=== PATIENT | male | born 1965 | race Caucasian/White ===

== ENCOUNTER 2022-07-11 14:13 | Outpatient (CLI) | payer OTHER, SELFPAY | END 2022-07-11 14:14 | disposition home or self-care (01) | LOC: ANHAUDIO 14:14 | PROVIDERS: PCP Family Medicine; Visit Provider Otolaryngology | DX: H90.42 Sensorineural hearing loss, unilateral, left ear, with unrestricted hearing on the contralateral side (principal); H90.71 Mixed conductive and sensorineural hearing loss, unilateral, right ear, with unrestricted hearing on the contralateral side | CPT/HCPCS: 92557; 92567 ==

== ENCOUNTER 2023-10-06 13:24 | Outpatient (CLI) | payer OTHER, SELFPAY ==
--- NOTE | ~2023-10-06 | CT_ITS ---
EXAMINATION: CT lung screening DATE: 10/06/2023 13:42 INDICATION: Personal history of nicotine dependence, current smoker with 80 pack year history TECHNIQUE: Computed tomography (CT) of the chest was performed without intravenous contrast. The dose -length product (DLP) was 254.03 mGy-cm. Automated exposure control and iterative reconstruction tech [employer] were employed. COMPARISON: None FINDINGS: There is mild emphysema. There are multiple small nodules scattered throughout the lungs wh ich measure up to 2 mm in the right upper lobe. Calcified pulmonary nodules and calcified bilateral h ilar lymph nodes are consistent with old granulomatous disease. The lungs are free of acute opacities . No pleural effusion or pneumothorax. No pathologically enlarged thoracic lymph nodes are identified . The heart size is normal. Calcified coronary artery atherosclerosis is noted. Subendocardial fat de position in the interventricular septum could reflect prior myocardial infarction. Punctate calcifica tions in an otherwise normal spleen likely represent healed granulomatous disease. There are bridging osteophytes at multiple levels in the spine, consistent with diffuse idiopathic skeletal hyperostosi s (DISH). IMPRESSION: 1. Lung-RADS category 2: Benign appearance or behavior. Continue annual screening with noncontrast lo w-dose chest CT in 12 months. Reviewed, dictated and finalized at location B. ER IMPRESSION: 1. Lung-RADS category 2: Benign appearance or behavior. Continue annual screeni ng with noncontrast low-dose chest CT in 12 months.
== END 2023-10-06 13:25 | disposition home or self-care (01) ==
PROVIDERS: PCP Family Medicine; Visit Provider Physician Assistant
DX: Z12.2 Encounter for screening for malignant neoplasm of respiratory organs (principal); Z87.891 Personal history of nicotine dependence
CPT/HCPCS: 71271

== ENCOUNTER 2023-10-21 07:44 | Outpatient (CLI) | payer OTHER, SELFPAY ==
--- NOTE | ~2023-10-21 | US_ITS ---
EXAMINATION: US aorta DATE: 10/21/2023 09:55 CDT INDICATION: History of smoking. Screening. TECHNIQUE: Grayscale, color Doppler, and pulsed Doppler images of the aorta and common iliac arteries were obtained. COMPARISON: None. FINDINGS: The proximal aorta measures 2 cm greatest sagittal dimension. The mid aorta measures 1.8 cm greatest sagittal dimension. The distal aorta measures 1.3 cm greatest sagittal dimension. The right common in ternal iliac artery measures 1 cm. The left common iliac artery measures 0.7 cm. IMPRESSION: 1. Normal caliber aorta without aneurysm. Reviewed, dictated and finalized at location A.
== END 2023-10-21 07:45 | disposition home or self-care (01) ==
PROVIDERS: PCP Family Medicine; Visit Provider Nurse Practitioner Family
DX: F17.200 Nicotine dependence, unspecified, uncomplicated (principal)
CPT/HCPCS: 76775

== ENCOUNTER 2023-12-01 01:39 | Day surgery (SDC) | payer OTHER, SELFPAY ==
[2023-11-15 14:12] VITALS: BMI 31.2
[2023-12-01 11:14] VITALS: BP 132/67; PULSE 81; RESP 16; TEMP 36.2; O2SAT 97
[2023-12-01] MEDS: LACTATED RINGERS 1,000 ML 150 ML IV CONT (11:21)
--- NOTE | 2023-12-01 11:41 | P.PNAN_ITS ---
Anes - Initial Pre Proc Eval Procedure: Operation Date: 12/01/23 12:30 Proposed Procedures p Colonoscopy - Yvon Johnson MD Date/Time: 12/01/23 11:41 Surgeon: Yvon Johnson MD Pre Op Diagnosis: Family history malignant neoplasm of digestive Patient Data Age: 57 Gender: M Height: 1.91 m Weight: 111.2 kg Last Vital Signs Temp 97.1 F L 12/01/23 11:14 Pulse 81 12/01/23 11:14 Resp 16 12/01/23 11:14 BP 132/67 12/01/23 11:14 Pulse Ox 97 12/01/23 11:14 O2 Del Method Room Air 12/01/23 11:14 Allergies Allergy/AdvReac Type Severity Reaction Status Date / Time No Known Allergies Allergy Verified 12/01/23 11:13 Home Medications Medication Instructions Recorded Confirmed Type albuterol sulfate 90 mcg/actuation 2 inh inhalation Q4H PRN shortness 07/18/23 11/15/23 Rx aerosol inhaler of breath or wheezing #8.5 grams Patient hx anesthesia problems: none Family hx anesthesia problems: none Results Review: All pre-operative results and documents have been reviewed as part of the pre- operative evaluation. 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 Informed Consent: The patient's anesthetic plan and its attendant risks and benefits were discussed with the patient/family/POA. Questions were solicited and answers provided to the satisfaction of the patient/family/POA.
--- NOTE | 2023-12-01 12:03 | PM.HPGS ---
History of Present Illness History of Present Illness Consent: Risks, benefits, and alternatives have been discussed and questions answered. Patient agrees to proceed with procedure. Chief complaint: Family history malignant neoplasm of digestive Narrative: Guillermo Hagan is a 57 year old male here for colonoscopy, father had colon cancer Review of Systems Review of Systems: All systems reviewed & are unremarkable except as noted in HPI and below PMFSH Past Medical History Medical History Arthritis Diabetes CHARLENE (obstructive sleep apnea) Family History Family History Father Heart disease Mother Cancer Grandparent Cancer Diabetes mellitus Social History Social History Smoking packs per day: 1.5 Smoking cigarettes per day: 30.0 Smoking status: Current every day smoker Tobacco type: cigarettes Alcohol intake: current Drinks per week: 24 Substance use: never Substance use type: does not use Living arrangements: with family Occupation/Education: occupation 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 Spiritual care concerns: No Agree to blood products: Yes Meds Home Medications and Allergies Home Medications Medication Instructions Recorded Confirmed Type albuterol sulfate 90 mcg/actuation 2 inh inhalation Q4H PRN shortness 07/18/23 11/15/23 Rx aerosol inhaler of breath or wheezing #8.5 grams Allergies Allergy/AdvReac Type Severity Reaction Status Date / Time No Known Allergies Allergy Verified 12/01/23 11:13 Vital Signs Vital Signs - 24 hr 12/01/23 11:14 Temperature 97.1 F L Pulse Rate 81 Respiratory Rate 16 Blood Pressure 132/67 Pulse Oximetry 97 Oxygen Delivery Room Air Exam Const: General: comfortable and no acute distress HENMT: Face/Nose/Sinus: Normal nares present Eyes: General: appearance normal, both eyes and all related structures Neck: Neck: no JVD Resp: Auscultation: clear to auscultation bilaterally Cardio: Rate: regular rate Rhythm: regular rhythm GI: Inspection: non-distended GI Palp: Yes Soft to palpation Skin: General skin exam: normal color Neuro: General: gait normal Speech: normal speech Extrem: General: normal to inspection Psych: Mental Status: mental status grossly normal Assessment and Plan Assessment and plan (1) Family history of colon cancer: Code(s): Z80.0 - Family history of malignant neoplasm of digestive organs Status: Acute Assessment and Plan: colonoscopy
[2023-12-01 12:27] VITALS: BP 97/57; PULSE 76; RESP 12; O2SAT 93
[2023-12-01 12:37] VITALS: BP 108/70; PULSE 75; RESP 18; O2SAT 93
--- NOTE | 2023-12-01 12:37 | P.CONGI_ITS ---
GI Consult Note Consult date/time: 12/01/23 12:37 Reason for consult: hematochezia HPI: Guillermo Hagan is a 57 year old male [facility] Past Medical History Medical History Arthritis Diabetes CHARLENE (obstructive sleep apnea) Family History Family History Father Heart disease Mother Cancer Grandparent Cancer Diabetes mellitus Social History Social History Smoking packs per day: 1.5 Smoking cigarettes per day: 30.0 Smoking status: Current every day smoker Tobacco type: cigarettes Alcohol intake: current Drinks per week: 24 Substance use: never Substance use type: does not use Living arrangements: with family Occupation/Education: occupation 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[employer] Spiritual care concerns: No Agree to blood products: Yes Meds Home Medications and Allergies Home Medications Medication Instructions Recorded Confirmed Type albuterol sulfate 90 mcg/actuation 2 inh inhalation Q4H PRN shortness 07/18/23 11/15/23 Rx aerosol inhaler of breath or wheezing #8.5 grams Allergies Allergy/AdvReac Type Severity Reaction Status Date / Time No Known Allergies Allergy Verified 12/01/23 11:13 Vital Signs Vital Signs - 24 hr 12/01/23 11:14 12/01/23 12:27 Temperature 97.1 F L Pulse Rate 81 76 Respiratory Rate 16 12 Blood Pressure 132/67 97/57 L Pulse Oximetry 97 93 Oxygen Delivery Room Air Room Air
[2023-12-01 12:47] VITALS: BP 113/71; PULSE 73; RESP 15; O2SAT 95
== END 2023-12-01 12:59 | disposition home or self-care (01) ==
PROVIDERS: PCP Nurse Practitioner Family; Visit Provider Internal Medicine Gastroenterology
PROC: 0DJD8ZZ Inspection of Lower Intestinal Tract, Via Natural or Artificial Opening Endoscopic (ICD-10-PCS; CPT 45378; principal; 2023-12-01 12:30)
DX: Z12.11 Encounter for screening for malignant neoplasm of colon (principal); D12.0 Benign neoplasm of cecum; D12.3 Benign neoplasm of transverse colon; Z80.0 Family history of malignant neoplasm of digestive organs; E11.9 Type 2 diabetes mellitus without complications; G47.33 Obstructive sleep apnea (adult) (pediatric); Z79.51 Long term (current) use of inhaled steroids; F17.210 Nicotine dependence, cigarettes, uncomplicated
CPT/HCPCS: 45385; 88305; J2704; J7120

== ENCOUNTER 2024-02-05 14:15 | Outpatient (CLI) | payer OTHER, SELFPAY ==
--- NOTE | 2024-02-06 07:51 | WPDPFTINT ---
PFT Procedure Performed PFT Procedure Performed Spirometry with Pre/Post Bronchodilator Plethysmography (Lung Vol) Diffusing Cap (DLCO) Flow Vol Loop PFT Interpretation This is a pulmonary function test with pre and post-bronchodilator spirometry, plethysmography and diffusing capacity. The test was performed and results interpreted in accordance with the 2019 and 2005 ATS/ERS Task Force guidelines respectively using the Global Lung Function Initiative-2012 reference equations. Patient demonstrated good effort and cooperation. Reproducibility criteria were met. The quality of the pre bronchodilator spirometry maneuver was Grade A and post bronchodilator spirometry maneuver was Grade A. Findings: Spirometry: There is decreased maximal expiratory airflow at all lung volumes with concave expiratory flow tracing. The contour the inspiratory flow tracing is normal. The pre bronchodilator FVC is 5.67 L, 107% predicted. The pre bronchodilator FEV1 is 3.59 L, 88% predicted. The pre bronchodilator FEV1: FVC ratio is 63%. The post bronchodilator FVC is 6.18 L, representing a 9% increase. The post bronchodilator FEV1 is 3.83 L, representing a 7% increase. The post bronchodilator FEV1: FVC ratio 62%. Plethysmography: The total lung capacity is 8.93 L, 114% predicted. The functional residual capacity is 5.77 L, 140% predicted. The residual volume is 3.26 L, 132% predicted. the residual volume: Total lung capacity ratio is 37%. Diffusing capacity: The diffusing capacity unadjusted for hemoglobin and carboxyhemoglobin is 27.1, 90% predicted. The diffusing capacity adjusted for alveolar volume is 3.39, 85% predicted. Impression: The spirometry is normal without evidence of an obstructive abnormality. There is no significant improvement after inhaling a single dose of albuterol. The total lung capacity and residual volume: Total lung capacity ratio are normal with an increased functional residual capacity and residual volume. This is an abnormal but nonspecific lung volume pattern. The diffusing capacity is normal. There are no prior studies for comparison
--- NOTE | 2024-02-07 12:32 | WPDSIXMINUTE ---
Six Minute Walk Procedure Procedure Performed Pulmonary Stress Test (6 min walk) Six Minute Walk Six Minute Walk: This is a 6 minute walk test. The test was performed and interpreted in accordance with the 2014 ERS/ATS task force guidelines. Findings: The patient's resting room air oxygen saturation measured by pulse oximetry was 94% and heart rate was 66 bpm. Patient ambulated for 610 meters and oxygen saturation remained 94 to 97%. Heart rate at the end of the study was 77 bpm. The patient did not qualify for supplemental oxygen at rest or with ambulation. There are no prior studies for comparison.
== END 2024-02-05 14:16 | disposition home or self-care (01) ==
LOC: ANHPFT 14:16
PROVIDERS: PCP Nurse Practitioner Family; Visit Provider Physician Assistant
DX: R06.09 Other forms of dyspnea (principal)
CPT/HCPCS: 94060; 94618; 94726; 94729